=== PATIENT | male | born 1950 | race Caucasian/White ===

== ENCOUNTER 2018-04-21 06:04 | Day surgery (SDC) | payer MEDICARE, OTHER ==
[~2018-04-21] VITALS: Ht 162.6 cm; Wt 79.5 kg
[~2018-04-21 06:04] MED LIST: SODIUM CHLORIDE 0.9% 1,000 ML IV ONE
[2018-04-21] MEDS ORDERED: ALBUTEROL SULFATE 2.5 MG/0.5 ML NEB SOLUTION NEB ONE (06:05)
[2018-04-21] MEDS ORDERED: LIDOCAINE HCL 4% 50 ML SOLUTION TP ONE (06:05)
[2018-04-21] MEDS ORDERED: LIDOCAINE HCL 2% 30 ML JELLY TP ONE (06:05)
[2018-04-21] MEDS ORDERED: BENZOCAINE 20% 50 MCG/SPRAY 57 GM TP ONE (06:05)
[2018-04-21] MEDS ORDERED: DICL4100G TP (06:38)
[2018-04-21] MEDS ORDERED: METO25 PO (06:38)
[2018-04-21] MEDS ORDERED: BUDE10.2 IH (06:38)
[2018-04-21] MEDS ORDERED: FLUT16H NASAL (06:38)
[2018-04-21] MEDS ORDERED: GABA-531 PO (06:38)
[2018-04-21] MEDS ORDERED: CEPH500 PO (06:38)
[2018-04-21] MEDS ORDERED: PRED10 PO (06:38)
[2018-04-21] MEDS ORDERED: MONT10TA21 PO (06:38)
[2018-04-21] MEDS ORDERED: OMEP20 PO (06:38)
[2018-04-21] MEDS ORDERED: NITR0.4T50 SL (06:38)
[2018-04-21] MEDS ORDERED: CLIN30SO2 TP (06:38)
[2018-04-21] MEDS ORDERED: ATOR40TA28 PO (06:38)
[2018-04-21] MEDS ORDERED: ASPI81TA87 PO (06:38)
[2018-04-21] MEDS ORDERED: SODIUM CHLORIDE 0.9% 1,000 ML IV ONE (07:15)
[2018-04-21] MEDS ORDERED: MIDAZOLAM HCL 2 MG/2 ML VIAL ONE (07:55)
[2018-04-21] MEDS ORDERED: FentaNYL CITRATE-PF 100 MCG/2 ML VIAL ONE (07:55)
[2018-04-21] MEDS ORDERED: MethylPREDNISolone SOD SUCC 125 MG/2 ML VIAL IVP ONE (08:45)
[2018-04-21] MEDS ORDERED: OXYGEN THERAPY IH SCH (20:00)
== END 2018-04-21 10:25 | disposition home or self-care (01) ==
LOC: SURGERY 06:04
PROVIDERS: ATTEND Internal Medicine Critical Care Medicine
DX: J38.4 Edema of larynx (principal); B37.0 Candidal stomatitis; K21.9 Gastro-esophageal reflux disease without esophagitis; J45.998 Other asthma; I11.9 Hypertensive heart disease without heart failure; E78.00 Pure hypercholesterolemia, unspecified; I25.2 Old myocardial infarction; Z87.891 Personal history of nicotine dependence; Z72.89 Other problems related to lifestyle; Z95.5 Presence of coronary angioplasty implant and graft; Z98.41 Cataract extraction status, right eye; Z98.42 Cataract extraction status, left eye; Z86.74 Personal history of sudden cardiac arrest; Z79.2 Long term (current) use of antibiotics; Z79.1 Long term (current) use of non-steroidal anti-inflammatories (NSAID); Z79.82 Long term (current) use of aspirin; Z79.891 Long term (current) use of opiate analgesic; Z79.899 Other long term (current) drug therapy
CPT/HCPCS: 31623; 31624; 71045; 87015; 87070; 87205; 87206; 87220; 88108; 88312; J2250; J2930; J3010; J7030

== ENCOUNTER 2022-07-16 05:41 | Day surgery (SDC) | payer MEDICARE, OTHER ==
[~2022-07-16] VITALS: Ht 180.3 cm; Wt 83.5 kg
[~2022-07-16 05:41] MED LIST changes: +ASPI81TA87 PO; +ATOR40TA28 PO; +BUDE10.2 IH; +CEPH-558 PO; +CLIN30SO2 TP; +DICL4100G TP; +FLUT16H NASAL; +GABA-1181 PO; +METO25 PO; +MONT-35 PO; +NITR0.4T50 SL; +OMEP20 PO; +PRED-729 PO
[2022-07-16] MEDS ORDERED: BENZOCAINE 20% 50 MCG/SPRAY 57 GM TP ONE (05:42)
[2022-07-16] MEDS ORDERED: LIDOCAINE 2% 11 ML JELLY TP ONE (05:42)
[2022-07-16] MEDS ORDERED: LIDOCAINE 4% 50 ML SOLUTION TP ONE (05:42)
[2022-07-16] MEDS ORDERED: SODIUM CHLORIDE 0.9% 1,000 ML ONE ×2 (05:56→06:55)
[2022-07-16 06:07] LABS: COVID AG,FIA SOURCE NASOPHARYNGEAL
[2022-07-16] MEDS ORDERED: FURO20 PO (07:02)
[2022-07-16] MEDS ORDERED: PROM6.2514 PO (07:02)
[2022-07-16] MEDS ORDERED: LOSA-381 PO (07:02)
[2022-07-16] MEDS ORDERED: ALBU8HFA IH (07:02)
[2022-07-16] MEDS ORDERED: FAMO20 PO (07:02)
[2022-07-16] MEDS ORDERED: TRIA15CR49 TP (07:03)
[2022-07-16] MEDS ORDERED: MIDAZOLAM HCL 2 MG/2 ML VIAL ONE (08:07)
[2022-07-16] MEDS ORDERED: FentaNYL CITRATE PF 100 MCG/2 ML VIAL ONE (08:07)
[2022-07-16] MEDS ORDERED: MethylPREDNISolone SOD SUCC 125 MG/2 ML VIAL ONE (08:52)
[2022-07-16] MEDS ORDERED: MethylPREDNISolone SOD SUCC 125 MG/2 ML VIAL IVP ONE (09:00)
[2022-07-16] MEDS ORDERED: OXYGEN THERAPY IH SCH (20:00)
== END 2022-07-16 10:52 | disposition home or self-care (01) ==
LOC: SURGERY 05:41
PROVIDERS: ATTEND Internal Medicine Critical Care Medicine
DX: J38.4 Edema of larynx (principal); B37.0 Candidal stomatitis; E11.9 Type 2 diabetes mellitus without complications; G47.30 Sleep apnea, unspecified; Z98.890 Other specified postprocedural states; Z79.899 Other long term (current) drug therapy
CPT/HCPCS: 31623; 87101; 87220; 87070; 31624; 71045; 87015; 87426; 87206; J3010; J2250; J2930; Q9967; J7030; C9803; Z7610

== ENCOUNTER 2024-01-29 06:57 | Day surgery (SDC) | payer MEDICARE, OTHER ==
[~2024-01-29] VITALS: Ht 177.8 cm; Wt 81.8 kg
[~2024-01-29 06:57] MED LIST changes: +ALBU18HF12 IH; -BUDE10.2 IH; -CEPH-558 PO; +FAMO20 PO; -FLUT16H NASAL; +FLUT16SP NASAL; +FURO20 PO; -GABA-1181 PO; +LOSA-381 PO; -OMEP20 PO; -PRED-729 PO; +PROM5L PO; -SODIUM CHLORIDE 0.9% 1,000 ML IV ONE; +TRIA15CR49 TP
[2024-01-29] MEDS ORDERED: SODIUM CHLORIDE 0.9% 1,000 ML ONE (07:05)
[2024-01-29] MEDS ORDERED: FentaNYL CITRATE PF 100 MCG/2 ML VIAL ONE (07:33)
[2024-01-29] MEDS ORDERED: MIDAZOLAM HCL 2 MG/2 ML VIAL ONE (07:33)
[2024-01-29] MEDS: SODIUM CHLORIDE 0.9% 1,000 ML IV ONE (08:18)
[2024-01-29 09:45] VITALS: PULSE 71; RESP 18; O2SAT 100
[2024-01-29] MEDS ORDERED: MethylPREDNISolone SOD SUCC 125 MG/2 ML VIAL ONE (10:26)
[2024-01-29] MEDS: MethylPREDNISolone SOD SUCC 125 MG/2 ML VIAL IVP ONE (10:33)
[2024-01-29] MEDS ORDERED: BENZOCAINE 20% 50 MCG/SPRAY 57 GM TP ONE (12:00)
[2024-01-29] MEDS ORDERED: ALBUTEROL SULFATE 2.5 MG/0.5 ML NEB SOLUTION NEB ONE (12:00)
[2024-01-29] MEDS ORDERED: LIDOCAINE 4% 50 ML SOLUTION TP ONE (12:00)
[2024-01-29] MEDS ORDERED: LIDOCAINE 2% 11 ML JELLY TP ONE (12:00)
== END 2024-01-29 11:55 | disposition home or self-care (01) ==
LOC: SURGERY 06:57
PROVIDERS: ATTEND Internal Medicine Critical Care Medicine
DX: J38.4 Edema of larynx (principal); B37.0 Candidal stomatitis; Z79.899 Other long term (current) drug therapy; I25.2 Old myocardial infarction; Z98.890 Other specified postprocedural states
CPT/HCPCS: 31623; 93005; 87206; 87101; 87220; 87070; 88108; 31624; 94640; 71045; 87015; J3010; J2250; J2919; Q9967; J7030; J7613; Z7610